=== PATIENT | male | born 1955 | race Caucasian/White ===

== ENCOUNTER 2022-06-05 12:48 | Emergency (ER) | payer MEDICARE, BC ==
[~2022-06-05] VITALS: Ht 177.8 cm; Wt 70.5 kg
[2022-06-05 12:50] VITALS: BP 161/85
== END 2022-06-05 14:28 | disposition home or self-care (01) ==
LOC: M ED 12:48
DX: R20.0 Anesthesia of skin (principal); Z88.0 Allergy status to penicillin